=== PATIENT | male | born 1970 | race Hispanic/Latino ===

== ENCOUNTER 2020-08-17 14:18 | Inpatient (IN) | payer BC ==
[~2020-08-17 14:18] MED LIST: Iopamidol-370 76% 500 ML 1 ML ONE
[2020-08-17 14:47] LABS: #Eosinphils 0.1 thou/uL (0.0-0.7); #Lymphocytes 1.1 thou/uL (1.20-3.40); #Monocytes 0.2 thou/uL (0.11-0.59); #Neutrophils 15.8 thou/uL (1.40-6.50); %Basophils 0.3 % (0.0-1.0); %Eosinophils 0.4 % (0.0-10.0); %Lymphocytes 6.3 % (21.0-51.0); Hemoglobin 12.1 g/dL (14.0-18.0); Mean Corpuscular Hemoglobin 32.9 pg (27.0-31.0); Mean Corpuscular Volume 96.8 fL (78.0-98.0); Mean Platelet Volume 7.6 fL (7.4-10.4); Platelet Count 154 thou/uL (130-400); Red Blood Cell (RBC) Count 3.69 mill/uL (4.70-6.10); White Blood Cell (WBC) Count 17.1 thou/uL (4.8-10.8)
--- NOTE | 2020-08-17 14:55 | RAD ---
Chest one view HISTORY: Dyspnea. COMPARISON: 03/04/2016. FINDINGS: Cardiac silhouette is magnified by projection. Shallow inspiration accentuates pulmonary ma rkings. Ill-defined patchy areas of parenchymal opacity involve primarily the peripheral aspect of each lung. Mediastinum is midline. No evidence of pneumothorax. IMPRESSION : Appearance and location of multifocal bilateral infiltrates suggestive of multifocal pneumonia. Corre late for COVID pneumonitis.
[2020-08-17 15:15] LABS: ALT (SGPT) 28 U/L (8-55); AST (SGOT) 51 U/L (5-34); Albumin 3.6 g/dL (3.5-5.0); Alkaline Phosphatase 88 U/L (40-110); Anion Gap 24 mmol/L (10-20); BUN (Urea Nitrogen) 62 mg/dL (8.9-20.6); Bilirubin, Total 0.6 mg/dL (0.2-1.2); Calc. Creatinine Clearance 0 mL/min (70-130); Calcium 8.8 mg/dL (7.8-10.44); Carbon Dioxide 21 mmol/L (22-29); Chloride 96 mmol/L (98-107); Globulin 4.3 g/dL (2.4-3.5); Glucose 143 mg/dL (70-105); Lipase 55 U/L (8-78); Potassium 4.2 mmol/L (3.5-5.1); Protein, Total 7.9 g/dL (6.0-8.3); Sodium 137 mmol/L (136-145)
--- NOTE | 2020-08-17 15:41 | PDOC.FPRHP ---
- History of Present Illness Chief Complaint: Needs Dialysis History of Present Illness: Patient is a 49 yo M with a PMHx of ESRD on dialysis. Patient presented to ED 2/2 needing dialysis. Patient was short of breath for ~1 week and was tested for COVID. With the pending COVID test, the patient was not allowed to go back to the dialysis center. On triage in the ER, patient was hypoxic and placed on NC. He states symptoms progressively became worse over the last week. He denies home oxygen. He does have non-productive cough. Denies chest pain, palpitations. He is tolerating PO intake but decreased food intake. No nausea/vomiting. He does not know his exposure. ED Course: Patient is on 4L NC - Allergies/Adverse Reactions Allergies Allergy/AdvReac Type Severity Reaction Status Date / Time No Known Allergies Allergy Unverified 08/17/20 17:49 - Home Medications Medication Instructions Recorded Confirmed Type Ferric Citrate [Auryxia] 420 mg PO TID-WM 08/18/20 08/18/20 History Midodrine HCl 5 mg PO Q2DAYS 08/18/20 08/18/20 History Vit D3-Vit K/Berberine/Hops 1 tablet PO DAILY 08/18/20 08/18/20 History [Ostera Tablet] - History PMHx: ESRD dialysis MWF, HTN PSHx: Dialysis AVF L arm FHx: non-contributory Social: Chews tobacco daily, denies etoh, drug use - Review of Systems General: reports: fever/chills, weight/appetite/sleep changes, fatigue. denies: night sweats Eyes: denies: eye pain, vision changes ENT: denies: nasal congestion, rhinorrhea Respiratory: reports: cough, congestion, shortness of breath, exercise intolerance Cardiovascular: denies: chest pain, palpitation, edema, paroxysmal nocturnal dyspnea, orthopnea Gastrointestinal: reports: diarrhea. denies: nausea, vomiting, constipation Genitourinary: denies: incontinence, dysuria, polyuria Skin: denies: rashes, lesions, jaundice Musculoskeletal: denies: pain, tenderness, stiffness, swelling Neurological: reports: weakness. denies: numbness, syncope, seizure Psychological: denies: anxiety, depression - Vital signs O2 sat: 68 on (Room Air), Time: 08/17/2020 14:19. BP: 150/100, MAP: 116, Pulse: 96, Resp: 30, Temp: 98.8 (Oral), Pain: 0, O2 sat: 97 on (4L Oxygen), Time: 08/17/2020 14:30. Wt 118 kg - Physical Exam Constitutional: NAD, awake, alert and oriented, well developed HEENT: PERRLA, EOMI Neck: FROM, no JVD Heart: RRR, normal S1/S2 Lungs: CTAB, no respiratory distress, good air movement, no rales/rhonchi, no w heezing Abdomen: soft, non-tender, bowel sounds present Musculoskeletal: normal tone, ROM grossly normal Neurological: no focal deficit, CN II-XII intact Skin: no rash/lesions, capillary refill <2 seconds Heme/Lymphatic: no unusual bruising or bleeding, no purpura, no petechia Psychiatric: normal mood and affect, good judgment and insight, intact recent and remote memory FMR H&P: Results - Labs Result Diagrams: 08/18/20 06:32 08/18/20 06:32 Lab results: WBC 17.1 thou/uL (4.8-10.8) H 08/17/20 14:25 Hgb 12.1 g/dL (14.0-18.0) L 08/17/20 14:25 Hct 35.7 % (42.0-52.0) L 08/17/20 14:25 MCV 96.8 fL (78.0-98.0) 08/17/20 14:25 Plt Count 154 thou/uL (130-400) 08/17/20 14:25 Neutrophils % 92.0 % (42.0-75.0) H 08/17/20 14:25 Sodium 137 mmol/L (136-145) 08/17/20 14:25 Potassium 4.2 mmol/L (3.5-5.1) 08/17/20 14:25 Chloride 96 mmol/L (98-107) L 08/17/20 14:25 Carbon Dioxide 21 mmol/L (22-29) L 08/17/20 14:25 BUN 62 mg/dL (8.9-20.6) H 08/17/20 14:25 Creatinine 13.21 mg/dL (0.7-1.3) H 08/17/20 14:25 Glucose 143 mg/dL (70-105) H 08/17/20 14:25 Calcium 8.8 mg/dL (7.8-10.44) 08/17/20 14:25 Total Bilirubin 0.6 mg/dL (0.2-1.2) 08/17/20 14:25 AST 51 U/L (5-34) H 08/17/20 14:25 ALT 28 U/L (8-55) 08/17/20 14:25 Alkaline Phosphatase 88 U/L (40-110) 08/17/20 14:25 B-Natriuretic Peptide 52.4 pg/mL (0-100) 08/17/20 14:25 Serum Total Protein 7.9 g/dL (6.0-8.3) 08/17/20 14:25 Albumin 3.6 g/dL (3.5-5.0) 08/17/20 14:25 Lipase 55 U/L (8-78) 08/17/20 14:25 - EKG Interpretation EKG: NSR - Radiology Interpretation CT scan - chest Status: report reviewed by me Additional comment: Correlate with COVID No PE Chest x-ray Status: image reviewed by me, report reviewed by me Additional comment: bilateral infiltrates FMR H&P: A/P - Plan Pt is a 49 yo gentleman with ESRD, HTN: # Likely COVID Pneumonia - oxygen therapy as needed - will start dexamethasone - start remdesivir, conv plasma in am if pt has positive test # Leukocytosis # Elevated procalcitonin - UA w/ culture - BCx pending - start cefepime, vanc - hemodynamically stable - trend procal # ESRD MWF - Nephrology consulted, appreciate recs # HTN - unsure medications; monitor but currently normotensive - needs med rec # Hyperglycemia - A1c pendng Code: full DVT: Heparin Diet: Renal Fluids: PO in setting of ESRD Dispo: admit to medical, inpt FMR H&P: Upper Level - Plan Date/Time: 08/17/20 1071 I, Vladimir Baum, have evaluated this patient and agree with findings/plan as outlined by agronomy internship resident. Pertinent changes/additions are listed here. Addendum - Attending - Attending Attestation Date/Time: 08/17/20 8545 I personally evaluated the patient and discussed the management with Dr. Baum I agree with the History, Examination, Assessment and Plan documented above with any addition or exceptions noted below. Admit for AHRF 2/2 COVID. Start treatment. Continue NiPPV. Consult pulm as needed. Trend labs. Consult nephro for HD. Krysta
[2020-08-17] MEDS ORDERED: Calcium Carbonate 500 MG ChewTAB PO PRN (15:46)
[2020-08-17] MEDS ORDERED: Bisacodyl 10 MG SUPP PR PRN (15:46)
[2020-08-17] MEDS ORDERED: Acetaminophen 325 MG TAB PO PRN (15:46)
[2020-08-17] MEDS ORDERED: Ondansetron ODT 4 MG TAB PO PRN (15:46)
[2020-08-17] MEDS ORDERED: Acetaminophen 650 MG Suppository PR PRN (15:46)
[2020-08-17] MEDS ORDERED: Bisacodyl 5 MG TAB PO PRN (15:46)
[2020-08-17] MEDS ORDERED: Ondansetron PF 4 MG/2 ML Vial IVP PRN (15:46)
[2020-08-17] MEDS ORDERED: Senokot S 8.6-50 MG TAB PO PRN (15:46)
--- NOTE | 2020-08-17 15:55 | CT ---
CT arteriogram chest with IV contrast and 3-D imaging HISTORY: Chest pain. Dyspnea. FINDINGS: There is good contrast opacification pulmonary arteries and thoracic aorta with bovine orig in of the great vessels at the aortic arch. No filling defects apparent. Throughout each lung, there are predominantly peripheral ill-defined patchy areas of groundglass infi ltrate. No lobar consolidation or pneumothorax. No pleural fluid. Reactive appearing lymph nodes throughout the mediastinum. IMPRESSION : No evidence of pulmonary embolus. Prominent findings of COVID pneumonitis.
[2020-08-17 17:19] LABS: SARS-CoV-2 NAA Rapid Test DETECTED (NotDetected)
--- NOTE | 2020-08-17 18:53 | CON ---
DATE OF CONSULTATION: 08/17/2020 CONSULTING PHYSICIAN: Dr. Zaldivar REASON FOR CONSULTATION: End-stage renal disease evaluation and care. REASON FOR ADMISSION: Shortness of breath and COVID infection. HISTORY OF PRESENT ILLNESS: A 49-year-old male with history of end-stage renal disease, hypertension, morbid obesity, type 2 diabetes, came to the hospital with shortness of breath. The patient was actually having COVID test, but it was pending, but he became progressively short of breath, was sent to the hospital for evaluation. He was found to be hypoxic in the ER and started on oxygen supplementation and is due for dialysis today. He gets dialysis Thursday, Thursday, Thursday, due for today. Last dialysis was on Thursday. The patient is on 4 L nasal cannula. PAST MEDICAL HISTORY: Positive for end-stage renal disease, type 2 diabetes, hypertension, morbid obesity. PAST SURGICAL HISTORY: Dialysis access placement. HOME MEDICATIONS: Reviewed. ALLERGIES: NO KNOWN DRUG ALLERGIES. SOCIAL HISTORY: Chews tobacco. No alcohol or illicit drug abuse. FAMILY HISTORY: No history of kidney disease. REVIEW OF SYSTEMS: The following complete review of systems was negative, unless otherwise mentioned in the HPI or below: CONSTITUTIONAL: Weight loss or gain, ability to conduct usual activities. SKIN: Rash, itching. EYES: Double vision, pain. ENT/MOUTH: Nose bleeding, neck stiffness, pain, tenderness. CARDIOVASCULAR: Palpitations, dyspnea on exertion, orthopnea. RESPIRATORY: Shortness of breath, wheezing, cough, hemoptysis, fever or night sweats. GASTROINTESTINAL: Poor appetite, abdominal pain, heartburn, nausea, vomiting, constipation, or diarrhea. GENITOURINARY: Urgency, frequency, dysuria, nocturia. MUSCULOSKELETAL: Pain, swelling. NEUROLOGIC/PSYCHIATRIC: Anxiety, depression. ALLERGY/IMMUNOLOGIC: Skin rash, bleeding tendency. PHYSICAL EXAMINATION: GENERAL: This is a morbidly obese male on COVID isolation. VITAL SIGNS: Temperature 98, pulse 96, respiratory rate 30, blood pressure 150/100. The patient on COVID isolation. LABORATORY DATA: Potassium 4.2, BUN is 62, and creatinine is 13.2. Hemoglobin is 12.1. Bicarb is 21. COVID test is positive. ASSESSMENT AND PLAN: 1. End-stage renal disease, due for dialysis today. We will continue dialysis as tolerated. 2. COVID-19 infection with pneumonia. 3. Acute hypoxic respiratory failure secondary to COVID-19 infection. 4. Anemia of chronic kidney disease. 5. Edema. 6. Hypertension. 7. Mild hypoalbuminemia. 8. Morbid obesity. 9. Mild acidosis. Prognosis is guarded. Continue dialysis as tolerated. Continue supportive care. We will follow. Thank you for the consult. Job ID: [id number]
[2020-08-17] MEDS ORDERED: Vancomycin 1.5 GRAM/300 ML BAG 1.5 GM in Premix Bag 1 BAG IVPB SCH (20:00)
[2020-08-17 21:28] VITALS: BMI 38.3
[2020-08-17] MEDS ORDERED: Cefepime 1 GM in Sodium Chloride 0.9% 100 ML IVPB SCH (22:15)
[2020-08-17 22:27] LABS: HBSAg Index 0.15 S/CO (0-0.99); Hep B Surf Ag Non-Reactive S/CO (NonReactive)
[2020-08-18] MEDS: Heparin 5,000 UNITS/ML VIAL SC SCH ×4 (02:30→22:19)
[2020-08-18] MEDS ORDERED: Vancomycin 1.5 GRAM/300 ML BAG 1.5 GM in Premix Bag 1 BAG IVPB SCH (04:00)
--- NOTE | 2020-08-18 05:20 | PDOC.FM ---
- Subjective Subjective: States he slept well overnight without any SOB. Denies headache, vision changes, fatigue, chest pain, palpitations and edema. Will contact family to obtain names/doses of BP medication. - Objective MAR Reviewed: Yes Vital Signs & Weight: Vital Signs (12 hours) Temp Pulse Resp BP Pulse Ox 08/18/20 03:49 99.3 F 115 H 20 152/85 H 92 L 08/17/20 23:45 98.6 F 96 18 140/87 94 L 08/17/20 20:06 98.5 F 93 26 H 161/97 H 93 L Weight Weight 117.9 kg Result Diagrams: 08/18/20 06:32 08/18/20 06:32 Phys Exam - Physical Examination Constitutional: NAD HEENT: moist MMs, sclera anicteric Neck: no nodes Respiratory: clear to auscultation bilateral Sat 94% on 4L Cardiovascular: RRR, no significant murmur Gastrointestinal: soft, non-tender, positive bowel sounds Musculoskeletal: no edema Neurological: moves all 4 limbs Psychiatric: normal affect Skin: cap refill <2 seconds Dx/Plan - Plan Plan: Pt is a 49 yo gentleman with ESRD, HTN: Acute hypoxic respiratory failure 2/2 COVID pneumonia -O2 supplementation as needed. Currently sat'ing 92-94% at 4L NC -Continue dexamethasone (08/17) -Start remdesivir (08/18) and convalescent plasma (08/18) -Procal elevated at 9.97 > 10.62. Continue cefepime, vanc for possible superimposed bacterial infection. Trend procal daily # ESRD MWF - Nephrology consulted, f/u recs # HTN - unsure of medications. Patient is contacting family to obtain names/doses. Otherwise, will contact pharmacy # Hyperglycemia BG 143 in ED - A1c pendng PCP: [facility] Call Code: Full DVT: Heparin Diet: Renal Fluids: PO in setting of ESRD Dispo: Pending further medical management Addendum - Attending - Attending Attestation Date/Time: 08/18/20 3485 I personally evaluated the patient and discussed the management with Dr. Santana I agree with the History, Examination, Assessment and Plan documented above with any addition or exceptions noted below. Patient with ESRD and COVID AHRF. Continue supportive care IV ABX cefepime/vancomycin s/p convalescent plasma.
[2020-08-18 07:11] LABS: #Eosinphils 0.1 thou/uL (0.0-0.7); #Lymphocytes 0.8 thou/uL (1.20-3.40); #Monocytes 0.3 thou/uL (0.11-0.59); #Neutrophils 11.9 thou/uL (1.40-6.50); %Eosinophils 0.4 % (0.0-10.0); %Lymphocytes 6.4 % (21.0-51.0); %Monocytes 1.9 % (0.0-10.0); %Neutrophils 91.3 % (42.0-75.0); Hemoglobin 11.4 g/dL (14.0-18.0); Mean Corpuscular HGB CONC 34.7 g/dL (32.0-36.0); Mean Corpuscular Hemoglobin 33.5 pg (27.0-31.0); Mean Corpuscular Volume 96.7 fL (78.0-98.0); Mean Platelet Volume 7.6 fL (7.4-10.4); Platelet Count 159 thou/uL (130-400); RBC Distribution Width 13.2 % (11.5-14.5); Red Blood Cell (RBC) Count 3.39 mill/uL (4.70-6.10); White Blood Cell (WBC) Count 13.1 thou/uL (4.8-10.8)
[2020-08-18 07:34] LABS: Anion Gap 21 mmol/L (10-20); BUN (Urea Nitrogen) 37 mg/dL (8.9-20.6); Calc. Creatinine Clearance 17 mL/min (70-130); Carbon Dioxide 21 mmol/L (22-29); Chloride 95 mmol/L (98-107); Glucose 115 mg/dL (70-105); Potassium 4.2 mmol/L (3.5-5.1); Sodium 133 mmol/L (136-145)
[2020-08-18] MEDS ORDERED: Ferric Citrate [Auryxia] 210 MG Tablet PO SCH (08:00)
[2020-08-18] MEDS: Dexamethasone 4 MG TAB PO SCH (08:22)
[2020-08-18] MEDS ORDERED: BERBERINE PO SCH (09:00)
[2020-08-18] MEDS ORDERED: VIT D3 VIT K PO SCH (09:00)
[2020-08-18] MEDS ORDERED: HOPS PO SCH (09:00)
[2020-08-18] MEDS ORDERED: Vancomycin 1 GM in Premix Bag 1 BAG IVPB SCH (10:00)
[2020-08-18] MEDS ORDERED: HOLD VANCOMYCIN FOR LEVEL >20 IVP SCH (10:00)
[2020-08-18] MEDS ORDERED: Vancomycin HCl 1.25 GM in Sodium Chloride 0.9% 250 ML 250 ML IVPB SCH (10:00)
[2020-08-18] MEDS ORDERED: Vancomycin HCl 750 MG in Sodium Chloride 0.9% 250 ML 250 ML IVPB SCH (10:00)
[2020-08-18] MEDS ORDERED: Vancomycin HCl 1.5 GM in Sodium Chloride 0.9% 250 ML 300 ML IVPB SCH (10:00)
[2020-08-18] MEDS ORDERED: REMDESIVIR (EUA) 200 MG in Sodium Chloride 0.9% 250 ML 210 ML IV SCH ×2 (11:00→11:15)
[2020-08-18] MEDS ORDERED: REMDESIVIR (EUA) 100 MG in Sodium Chloride 0.9% 250 ML 230 ML IV SCH (11:15)
--- NOTE | 2020-08-18 11:51 | PRG ---
DATE OF SERVICE: 08/18/2020 SUBJECTIVE: Patient was seen and examined at bedside and overnight events noted. Patient denies any shortness of breath or chest pain or palpitation. No history of nausea or vomiting or diarrhea or fever or chills or cramps. OBJECTIVE: GENERAL: This is well-built male, in no apparent distress. VITAL SIGNS: Temperature 99.5, pulse 110, respiratory rate 18, blood pressure 163/98. HEENT: Atraumatic, normocephalic. Oral mucosa is moist. NECK: Supple. CARDIOVASCULAR: S1, S2 heard. Rate and rhythm regular. RESPIRATORY: Clear to auscultation. GASTROINTESTINAL: Abdomen is soft. MUSCULOSKELETAL: No tenderness. No edema. DERMATOLOGIC: No skin rash. NEUROLOGIC: Alert and awake and oriented x3. No focal neurologic deficits. Moving all the extremities. PSYCHIATRIC: Mood and affect normal. LABORATORY DATA: Potassium 4.2, BUN is 37, creatinine is 8.9. ASSESSMENT AND PLAN: 1. End-stage renal disease. Continue dialysis as tolerated. 2. Edema. 3. Hypertension. 4. COVID-19 infection. 5. Acute hypoxic respiratory failure. 6. Hypertension. 7. Morbid obesity. Continue dialysis as tolerated on Thursday, Thursday, and Thursday. Advised limit fluid intake. Job ID: [id number]
[2020-08-18] MEDS ORDERED: hydrALAZINE 20 MG/ML VIAL SLOW IVP PRN (17:28)
[2020-08-18] MEDS ORDERED: Prevnar 13-Val Conj/PF 0.5 ML SYRINGE IM ONE (21:00)
[2020-08-18] MEDS ORDERED: FLU VACC QS2020-21(6MOS UP)/PF 60 MCG/0.5 ML SYRINGE IM ONE (21:00)
[2020-08-18] MEDS ORDERED: Cefepime 0.5 GM, Admixture Fee 1 EACH in Sodium Chloride 0.9% 100 ML IVPB SCH (22:00)
[2020-08-18] MEDS: guaiFENesin ER 600 MG TAB PO SCH (22:19)
[2020-08-19 04:57] LABS: #Lymphocytes 0.9 thou/uL (1.20-3.40); #Monocytes 0.5 thou/uL (0.11-0.59); #Neutrophils 12.8 thou/uL (1.40-6.50); %Basophils 0.3 % (0.0-1.0); %Eosinophils 0.3 % (0.0-10.0); %Monocytes 3.2 % (0.0-10.0); %Neutrophils 90.3 % (42.0-75.0); Mean Corpuscular Volume 96.8 fL (78.0-98.0); Mean Platelet Volume 7.2 fL (7.4-10.4); Platelet Count 206 thou/uL (130-400); RBC Distribution Width 13.1 % (11.5-14.5); Red Blood Cell (RBC) Count 3.56 mill/uL (4.70-6.10); White Blood Cell (WBC) Count 14.1 thou/uL (4.8-10.8)
[2020-08-19 05:21] LABS: Anion Gap 25 mmol/L (10-20); BUN (Urea Nitrogen) 67 mg/dL (8.9-20.6); Calc. Creatinine Clearance 13 mL/min (70-130); Calcium 9.6 mg/dL (7.8-10.44); Carbon Dioxide 20 mmol/L (22-29); Chloride 94 mmol/L (98-107); Glucose 147 mg/dL (70-105); Potassium 4.6 mmol/L (3.5-5.1); Sodium 134 mmol/L (136-145)
--- NOTE | 2020-08-19 06:25 | PDOC.FM ---
- Subjective Subjective: Reports SOB with ambulation and BMs. Denies SOB at this time while resting in bed. Denies headache, vision changes, chest pain, palpitations, abdominal pain and edema. - Objective MAR Reviewed: Yes Vital Signs & Weight: Vital Signs (12 hours) Temp Pulse Resp BP Pulse Ox 08/18/20 20:00 98.3 F 80 18 147/99 H 94 L Weight Weight 117.9 kg I&O: 08/17/20 08/18/20 08/19/20 06:59 06:59 06:59 Intake Total 1200 Balance 1200 Result Diagrams: 08/19/20 04:38 08/19/20 04:38 Phys Exam - Physical Examination Constitutional: NAD HEENT: moist MMs, sclera anicteric Neck: full ROM Respiratory: clear to auscultation bilateral Cardiovascular: RRR, no significant murmur Gastrointestinal: soft, non-tender, positive bowel sounds Musculoskeletal: no edema Neurological: non-focal Psychiatric: normal affect Skin: no rash Dx/Plan - Plan Plan: Pt is a 49 yo gentleman with ESRD, HTN: Acute hypoxic respiratory failure 2/2 COVID pneumonia -O2 supplementation as needed. Currently sat'ing 94% at 4L NC -Continue dexamethasone (08/17), remdesivir (08/18) and convalescent plasma (08/18) -Procal elevated at 9.97 > 10.62 > 8.09. Discontinue vanc (08/17-08/18) and cefepime (08/17-08/18). Start azithromycin, rocephin for CAP coverage -F/u CXR this am -Continue trending procal daily # ESRD MWF - Nephrology consulted, recommended routine M/W/F dialysis - Limit fluid intake # HTN - Not on home meds. Hydralazine PRN # Prediabetes -A1C 6 upon admission PCP: [facility] Call Code: Full DVT: Heparin Diet: Renal Fluids: PO in setting of ESRD Dispo: Home pending further medical management. CM has been consulted for home O2 requirement Addendum - Attending - Attending Attestation Date/Time: 08/19/20 5661 I personally evaluated the patient and discussed the management with Dr. Santana I agree with the History, Examination, Assessment and Plan documented above with any addition or exceptions noted below. Patient appears stable however procalcitonin not trending down as expected agree with CAP and atypical coverage could potentially be d/c home soon on po abx.
[2020-08-19] MEDS: Heparin 5,000 UNITS/ML VIAL SC SCH ×3 (07:41→22:22)
[2020-08-19] MEDS: Dexamethasone 4 MG TAB PO SCH (07:41)
[2020-08-19] MEDS: guaiFENesin ER 600 MG TAB PO SCH ×2 (07:43→22:22)
--- NOTE | 2020-08-19 09:37 | RAD ---
RADIOGRAPH CHEST 1 VIEW: DATE: 08/19/2020 TIME: 9:24 AM HISTORY: 49-year-old male with dyspnea. Follow-up. COMPARISON: 08/29/2020 FINDINGS: Imaging technique is very different between the 2 studies, making comparison somewhat difficult. Diffuse bilateral nodular alveolar infiltrates throughout all lung de dios, right slightly greater katia n left. These appear to have improved, but that difference is probably due to higher exposure on the current study. No pneumothorax. Lateral costophrenic angles are not effaced. IMPRESSION: Probably no significant interval change in diffuse bilateral moderate to severe COVID 19 pneumonia.
[2020-08-19] MEDS: cefTRIAXone\\ROCEPHIN 1 GM in Sodium Chloride 0.9% 100 ML IVPB SCH (10:24)
[2020-08-19] MEDS ORDERED: Azithromycin 500 MG in Sodium Chloride 0.9% 250 ML 250 ML IVPB SCH (11:00)
[2020-08-19] MEDS ORDERED: REMDESIVIR (EUA) 100 MG in Sodium Chloride 0.9% 250 ML 230 ML IV SCH (12:00)
--- NOTE | 2020-08-19 12:29 | PRG ---
DATE OF SERVICE: 08/19/2020 SUBJECTIVE: Patient on COVID isolation. OBJECTIVE: VITAL SIGNS: Temperature 98.3, pulse 71, respirations 18, blood pressure 133/76. LABORATORY DATA: Potassium 4.6, BUN is 67, creatinine is 11.1, sodium 135. ASSESSMENT AND PLAN: 1. End-stage renal disease. Continue dialysis as tolerated. 2. Edema. 3. Hypertension. 4. Morbid obesity. 5. COVID-19 infection. 6. Hyponatremia, limit fluid intake. Advised limit fluid intake. Continue supportive care. We will continue dialysis Thursday, Thursday, Thursday as tolerated. Job ID: [id number]
--- NOTE | 2020-08-20 06:19 | PDOC.FM ---
- Subjective Subjective: Reports improvement of SOB, describes as mild with ambulation. Denies headache, vision changes, chest pain, SOB, and abdominal pain. - Objective MAR Reviewed: Yes Vital Signs & Weight: Vital Signs (12 hours) Temp Pulse Resp BP Pulse Ox 08/19/20 20:00 97.8 F 75 20 158/91 H 95 08/19/20 19:39 97.8 F 77 20 166/96 H 94 L Weight Weight 117.9 kg I&O: 08/18/20 08/19/20 08/20/20 06:59 06:59 06:59 Intake Total 1200 480 Balance 1200 480 Result Diagrams: 08/20/20 06:30 08/20/20 06:30 Phys Exam - Physical Examination Constitutional: NAD HEENT: moist MMs, sclera anicteric Neck: full ROM Respiratory: clear to auscultation bilateral Sat'ing 94% on 4L Cardiovascular: RRR, no significant murmur Gastrointestinal: soft, non-tender, positive bowel sounds Musculoskeletal: no edema Neurological: non-focal Psychiatric: normal affect, A&O x 3 Skin: no rash Dx/Plan - Plan Plan: Pt is a 49 yo gentleman with ESRD, HTN: # Acute hypoxic respiratory failure 2/2 COVID pneumonia -O2 supplementation as needed. Currently sat'ing 94% at 4L NC -Dexamethasone (08/17). S/p convalescent plasma (08/18) -Did not receive remdesivir due to elevated LFT -Procal elevated at 9.97 > 10.62 > 8.09. Discontinued vanc (08/17-08/18) and cefepime (08/17-08/18). Started azithromycin (08/19), rocephin (08/19) for CAP coverage -Repeat CXR 08/19: unchanged -CM consulted for home O2 coordination # ESRD MWF - Nephrology consulted, recommended routine M/W/F dialysis. Scheduled for dialysis today - Limit fluid intake # HTN - Not on home meds - Hydralazine PRN # Prediabetes -A1C 6 upon admission PCP: [facility] Call Code: Full DVT: Heparin Diet: Renal Fluids: PO in setting of ESRD Dispo: Stable for discharge home pending home O2 and dialysis today Addendum - Attending - Attending Attestation Date/Time: 08/20/20 1033 I personally evaluated the patient and discussed the management with Dr. Santana. I agree with the History, Examination, Assessment and Plan documented above with any addition or exceptions noted below. Patient reports feeling improved. He does have decent shortness of breath with exertion, but reports his activity tolerance has increased. Continue COVID care, continue HD. Wean O2 as tolerated and increase ambulation.
[2020-08-20 06:52] LABS: Hemoglobin 11.6 g/dL (14.0-18.0); Mean Corpuscular HGB CONC 34.5 g/dL (32.0-36.0); Mean Corpuscular Hemoglobin 33.3 pg (27.0-31.0); Mean Corpuscular Volume 96.4 fL (78.0-98.0); Mean Platelet Volume 7.2 fL (7.4-10.4); Platelet Count 211 thou/uL (130-400); RBC Distribution Width 13.2 % (11.5-14.5); Red Blood Cell (RBC) Count 3.49 mill/uL (4.70-6.10); White Blood Cell (WBC) Count 20.3 thou/uL (4.8-10.8)
[2020-08-20 07:08] LABS: Anion Gap 24 mmol/L (10-20); BUN (Urea Nitrogen) 96 mg/dL (8.9-20.6); Calc. Creatinine Clearance 12 mL/min (70-130); Calcium 9.2 mg/dL (7.8-10.44); Carbon Dioxide 17 mmol/L (22-29); Chloride 94 mmol/L (98-107); Glucose 133 mg/dL (70-105); Potassium 4.5 mmol/L (3.5-5.1); Sodium 130 mmol/L (136-145)
[2020-08-20] MEDS: guaiFENesin ER 600 MG TAB PO SCH ×2 (08:29→20:12)
[2020-08-20] MEDS: Dexamethasone 4 MG TAB PO SCH (08:29)
[2020-08-20] MEDS: Heparin 5,000 UNITS/ML VIAL SC SCH ×3 (08:29→20:12)
[2020-08-20] MEDS: Azithromycin 250 MG TAB PO SCH (08:30)
[2020-08-20 08:49] LABS: Band 6 % (5-11); Lymphocytes 6 % (21-51); MDiff Complete? YES; Metamyelocyte 2 % (0-0); Monocytes 5 % (0-10); Myelocyte 1 % (0-0); Neutrophil 80 % (42-75); Platelet Morphology Comment Appears Adequate; Polychromasia SLIGHT = 2-3 cells (100X) (0-2/hpf)
--- NOTE | 2020-08-20 09:50 | PRG ---
DATE OF SERVICE: 08/20/2020 SUBJECTIVE: A 49-year-old gentleman, being seen for end-stage renal disease. The patient denied any nausea, vomiting, or chest pain. PHYSICAL EXAMINATION: GENERAL: The patient is awake and alert. VITAL SIGNS: Afebrile, pulse 73, breathing at 16, blood pressure 142/86. HEENT: Head normocephalic and atraumatic. Eyes intact, no ulcers. Nose intact, no ulcers. Ears intact, no ulcers. NECK: Supple. No JVD. CHEST: Symmetrical and clear. CARDIOVASCULAR: Shows S1 and S2, no rub, no murmur. GASTROINTESTINAL: Abdomen is soft, bowel sounds positive. EXTREMITIES: Show no edema or ulcers. SKIN: Shows no rash or petechiae. MUSCULOSKELETAL: Shows no joint swelling or stiffness. GENITOURINARY: Shows no Bhatt or CVA tenderness. NEUROLOGIC: Motor intact. Cranial nerves intact. LABORATORY DATA: Reviewed. ASSESSMENT AND PLAN: 1. Stage 6 chronic kidney disease, plan dialysis. 2. Hypertension, stable. 3. Anemia, stable. Medication based on GFR appropriate. Job ID: [id number]
[2020-08-20] MEDS: cefTRIAXone\\ROCEPHIN 1 GM in Sodium Chloride 0.9% 100 ML IVPB SCH (12:40)
--- NOTE | 2020-08-21 06:52 | PDOC.FM ---
- Subjective Subjective: Reports SOB with ambulation. Otherwise, feels well. Underwent dialysis yesterday per routine M/W/F schedule. - Objective MAR Reviewed: Yes Vital Signs & Weight: Vital Signs (12 hours) Temp Pulse Resp BP Pulse Ox 08/21/20 03:50 97.8 F 84 20 135/88 95 08/20/20 19:54 98.3 F 91 20 120/75 93 L Weight Weight 117.9 kg I&O: 08/19/20 08/20/20 08/21/20 06:59 06:59 06:59 Intake Total 1200 480 240 Output Total 300 Balance 1200 480 -60 Result Diagrams: 08/21/20 06:02 08/21/20 06:02 Phys Exam - Physical Examination Constitutional: NAD HEENT: moist MMs, sclera anicteric Neck: full ROM Respiratory: no wheezing, clear to auscultation bilateral On 4L Cardiovascular: RRR, no significant murmur Gastrointestinal: soft, non-tender, positive bowel sounds Musculoskeletal: no edema Neurological: moves all 4 limbs Psychiatric: normal affect, A&O x 3 Skin: no rash Dx/Plan - Plan Plan: Pt is a 49 yo gentleman with ESRD, HTN: # Acute hypoxic respiratory failure 2/2 COVID pneumonia -O2 supplementation as needed. Currently sat'ing 92% at 4L NC. Wean as tolerated -Dexamethasone (08/17). S/p convalescent plasma (08/18) -Did not receive remdesivir due to ESRD, elevated LFT -Procal downtrendin.97 > 10.62 > 8.09 > 5 > 3. Discontinued vanc (08/17-08/18) and cefepime (08/17-08/18) Started azithromycin (08/19), rocephin (08/19) for CAP coverage -Repeat CXR 08/19: unchanged -CM consulted for home O2 coordination. Company currently out of O2 -Encouraged increased ambulation as tolerated # ESRD MWF - Nephrology consulted, recommended routine M/W/F dialysis - Limit fluid intake # Hyponatremia -Na 134 -> 130 -> 132 -Monitor # HTN - Not on home meds - Hydralazine PRN # Prediabetes -A1C 6 upon admission PCP: [facility] Call Code: Full DVT: Heparin Diet: Renal Fluids: PO in setting of ESRD Dispo: Stable for discharge home pending obtaining home O2 and coordinating outpatient dialysis with COVID + status Addendum - Attending - Attending Attestation Date/Time: 08/21/20 9121 I personally evaluated the patient and discussed the management with Dr. Santana. I agree with the History, Examination, Assessment and Plan documented above with any addition or exceptions noted below. Patient stable. Reports improved activity tolerance, still on 4L by NC. Continue therapies for COVID. Work to get his outpatient HD arranged as well as home O2 set up. If he remains fairly stable, may be ready for dc today or tomorrow.
[2020-08-21 06:55] LABS: Anion Gap 22 mmol/L (10-20); BUN (Urea Nitrogen) 73 mg/dL (8.9-20.6); Calc. Creatinine Clearance 16 mL/min (70-130); Calcium 8.5 mg/dL (7.8-10.44); Carbon Dioxide 21 mmol/L (22-29); Chloride 93 mmol/L (98-107); Glucose 141 mg/dL (70-105); Potassium 4.1 mmol/L (3.5-5.1); Sodium 132 mmol/L (136-145)
[2020-08-21 07:50] LABS: Band 4 % (5-11); Hemoglobin 11.7 g/dL (14.0-18.0); Lymphocytes 7 % (21-51); MDiff Complete? YES; Mean Corpuscular HGB CONC 35.1 g/dL (32.0-36.0); Mean Corpuscular Hemoglobin 33.5 pg (27.0-31.0); Mean Corpuscular Volume 95.5 fL (78.0-98.0); Mean Platelet Volume 7.3 fL (7.4-10.4); Metamyelocyte 2 % (0-0); Neutrophil 87 % (42-75); Platelet Count 199 thou/uL (130-400); RBC Morphology Normal; Red Blood Cell (RBC) Count 3.48 mill/uL (4.70-6.10); White Blood Cell (WBC) Count 16.1 thou/uL (4.8-10.8)
[2020-08-21] MEDS: guaiFENesin ER 600 MG TAB PO SCH ×2 (09:21→20:21)
[2020-08-21] MEDS: Dexamethasone 4 MG TAB PO SCH (09:21)
[2020-08-21] MEDS: Azithromycin 250 MG TAB PO SCH (09:22)
[2020-08-21] MEDS: Heparin 5,000 UNITS/ML VIAL SC SCH ×3 (09:22→20:21)
--- NOTE | 2020-08-21 12:17 | PRG ---
DATE OF SERVICE: 08/21/2020 SUBJECTIVE: A 49-year-old gentleman being seen for end-stage renal disease. The patient denies any nausea, vomiting, or chest pain. OBJECTIVE: GENERAL: The patient is awake and alert. VITAL SIGNS: Pulse 85, breathing 16, blood pressure 127/86. HEENT: Head normocephalic and atraumatic. Eyes intact, no ulcers. Nose intact, no ulcers. Ears intact, no ulcers. NECK: Supple. No JVD. CHEST: Symmetrical and clear. CARDIOVASCULAR: Shows S1 and S2, no rub, no murmur. GASTROINTESTINAL: Abdomen is soft, bowel sounds positive. EXTREMITIES: Show no edema or ulcers. SKIN: Shows no rash or petechiae. MUSCULOSKELETAL: Shows no joint swelling or stiffness. GENITOURINARY: Shows no Bhatt or CVA tenderness. NEUROLOGIC: Motor intact. Cranial nerves intact. LABORATORY DATA: Reviewed. ASSESSMENT AND PLAN: 1. Stage 6 chronic kidney . 2. Hypertension, stable. 3. Anemia, stable. 4. Medication based on GFR appropriate. Job ID: [id number]
[2020-08-21] MEDS: cefTRIAXone\\ROCEPHIN 1 GM in Sodium Chloride 0.9% 100 ML IVPB SCH (12:37)
--- NOTE | 2020-08-22 07:08 | PDOC.FM ---
- Subjective Subjective: Reports continued improvement of SOB with ambulation. Now able to ambulate to bathroom without SOB. Is ready to go home. Denies headache, chest pain, palpitations and edema. - Objective MAR Reviewed: Yes Vital Signs & Weight: Vital Signs (12 hours) Temp Pulse Resp BP Pulse Ox 08/21/20 19:33 97.7 F 85 18 142/97 H 95 Weight Weight 117.9 kg I&O: 08/21/20 08/22/20 08/23/20 06:59 06:59 06:59 Intake Total 240 3240 Output Total 300 Balance -60 3240 Result Diagrams: 08/21/20 06:02 08/22/20 08:14 Phys Exam - Physical Examination Constitutional: NAD HEENT: moist MMs, sclera anicteric Neck: full ROM Respiratory: clear to auscultation bilateral On 4L Cardiovascular: RRR, no significant murmur Gastrointestinal: soft, non-tender, positive bowel sounds Musculoskeletal: no edema Neurological: moves all 4 limbs Psychiatric: normal affect, A&O x 3 Skin: no rash Dx/Plan - Plan Plan: Pt is a 49 yo gentleman with ESRD, HTN: # Acute hypoxic respiratory failure 2/2 COVID pneumonia -O2 supplementation as needed. Currently sat'ing 92% at 4L NC. Wean as tolerated -Dexamethasone (08/17). S/p convalescent plasma (08/18) -Did not receive remdesivir due to ESRD, elevated LFT -Procal downtrendin.97 > 10.62 > 8.09 > 5 > 3. Discontinued vanc (08/17-08/18) and cefepime (08/17-08/18) Started azithromycin (08/19), rocephin (08/19) for CAP coverage -Repeat CXR 08/19: unchanged -CM consulted for home O2 coordination - has been approved -Encouraged increased ambulation as tolerated # ESRD MWF - Nephrology consulted, recommended routine M/W/F dialysis - Limit fluid intake # Hyponatremia, improving -Na 134 -> 130 -> 132 -> 133 -Monitor # HTN - Not on home meds - Hydralazine PRN # Prediabetes -A1C 6 upon admission PCP: [facility] Call Code: Full DVT: Heparin Diet: Renal Fluids: PO in setting of ESRD Dispo: Stable for discharge home today. Will f/u with [facility] to establish care within 1 week Addendum - Attending - Attending Attestation Date/Time: 08/22/20 1110 I personally evaluated the patient and discussed the management with Dr. Santana. I agree with the History, Examination, Assessment and Plan documented above with any addition or exceptions noted below.
[2020-08-22 08:42] LABS: Anion Gap 24 mmol/L (10-20); BUN (Urea Nitrogen) 102 mg/dL (8.9-20.6); Calc. Creatinine Clearance 14 mL/min (70-130); Calcium 8.2 mg/dL (7.8-10.44); Carbon Dioxide 20 mmol/L (22-29); Chloride 93 mmol/L (98-107); Glucose 144 mg/dL (70-105); Potassium 4.3 mmol/L (3.5-5.1); Sodium 133 mmol/L (136-145)
[2020-08-22] MEDS: Dexamethasone 4 MG TAB PO SCH (09:08)
[2020-08-22] MEDS: guaiFENesin ER 600 MG TAB PO SCH (09:08)
[2020-08-22] MEDS: Azithromycin 250 MG TAB PO SCH (09:08)
[2020-08-22] MEDS: Heparin 5,000 UNITS/ML VIAL SC SCH (09:08)
--- NOTE | 2020-08-22 10:49 | PRG ---
DATE OF SERVICE: 08/22/2020 SUBJECTIVE: A 49-year-old gentleman, being seen for end-stage renal disease. The patient denied nausea, vomiting, or chest pain. OBJECTIVE: GENERAL: The patient is awake and alert. VITAL SIGNS: Afebrile, pulse 75, breathing 16, blood pressure 142/97. HEENT: Head normocephalic and atraumatic. Eyes intact, no ulcers. Nose intact, no ulcers. Ears intact, no ulcers. Neck: Supple. No JVD. Chest: Symmetrical and clear. Cardiovascular: Shows S1 and S2, no rub, no murmur. Gastrointestinal: Abdomen is soft, bowel sounds positive. Extremities: Show no edema or ulcers. Skin: Shows no rash or petechiae. Musculoskeletal: Shows no joint swelling or stiffness. Genitourinary: Shows no Bhatt or CVA tenderness. Neurologic: Motor intact. Cranial nerves intact. LABORATORY DATA: Reviewed. ASSESSMENT AND PLAN: 1. Stage 6 chronic kidney disease, stable. 2. Hypertension, stable. 3. Anemia, stable. 4. Medication based on GFR appropriate. Job ID: [id number]
[2020-08-22] MEDS: cefTRIAXone\\ROCEPHIN 1 GM in Sodium Chloride 0.9% 100 ML IVPB SCH (11:26)
[2020-08-22 11:40] VITALS: BP 152/98; TEMP 98.5
--- NOTE | 2020-08-23 12:57 | DIS ---
DATE OF ADMISSION: 08/17/2020 DATE OF DISCHARGE: 08/22/2020 RESIDENT: Ksenia Santana MD ADMITTING ATTENDING: Dr. Armida Smith. DISCHARGE ATTENDING: Dr. Lucian Carlin. CONSULTS: Dr. Garrett, Nephrology. PROCEDURES: Routine dialysis completed while inpatient. PRIMARY DIAGNOSES: 1. Acute hypoxic respiratory failure secondary to COVID pneumonia. 2. Hyponatremia, improved. SECONDARY DIAGNOSES: 1. End-stage renal disease, on dialysis Thursday, Thursday, and Thursday. 2. Hypertension. 3. Prediabetes. DISCHARGE MEDICATIONS: 1. Ferric citrate 420 mg p.o. t.i.d. with meals. 2. Ostera tablet one tablet p.o. daily. 3. Cefdinir 300 mg p.o. q.12 hours for one day to complete course. 4. Mucinex 1200 mg p.o. q.12 hours p.r.n. 5. Decadron 6 mg p.o. q.a.m. with meals for four days to complete course. 6. Azithromycin 250 mg p.o. daily for one day to complete course. DISCONTINUED MEDICATIONS: None. HISTORY OF PRESENT ILLNESS: The patient is a 49-year-old male with a history of end-stage renal disease, on dialysis Thursday, Thursday, Thursday, who presented to the ED on 08/17/2020 with reports of shortness of breath for one week. The patient tested positive for COVID. While in the ED, he desaturated to 68% on room air and was placed on 4 L nasal cannula with improvement of respiratory status. The patient was started on dexamethasone 6 mg p.o. daily. He was given convalescent plasma on 08/18/2020. He did not receive remdesivir due to end-stage renal disease and elevated LFTs. The patient received Vancomycin and cefepime from 08/17-08/18. He was started on azithromycin and Rocephin for community acquired pneumonia coverage on 08/19/2020. The procalcitonin was trended and antibiotics were discontinued on 08/22/20. During hospitalization, the patient was noted to have hyponatremia trending 134 to 130 to 132 to 133. P.o. intake was encouraged with improvement. Upon admission, A1c was 6.0. The patient was diagnosed with prediabetes and counseled on dietary intake and exercise choices. The patient was deemed stable for discharge home with home O2 at 4 L on 08/22/2020. He was instructed to establish care with [facility] and follow up within 1 week. DISPOSITION: Stable. DISCHARGE INSTRUCTIONS: 1. Location: Home with home O2 at 4 L. 2. Diet: Heart healthy, low protein renal diet. 3. Activity: As tolerated. 4. Followup: Establish care at [facility] and follow up within 1 week. Job ID: [id number] [facility] SERVICES[facility]
--- NOTE | 2020-08-24 03:07 | PQF ---
Dear : Lucian Bullock Date 08/23/2020 Please exercise your independent, professional judgment in responding to the clarification form. Clinical indicators are provided on the bottom of this form for your review Can you please further clarify the diagnosis of the patient? Please check appropriate box(es): [ ] Sepsis due to COVID Pneumonia [ X ] Localized infection without sepsis [ ] Other diagnosis _acute hypoxic resp failure 2/2 COVID [ ] Unable to determine Physician Signature: Date/Time: For continuity of documentation, please document condition throughout progress notes and discharge summary. Thank You. To be completed by CDI/Coding staff for physician review: Present Clinical Indicators - Signs / Symptoms / Labs Results and Location in Medical Record [ x ] VS: BP: 150/100, CO: 96, RR: 30, T: 98.8 ED Provider pg.2 [ x ] Leukocytosis H and P pg.4 [ x ] Hyperglycemia H and P pg.4 [ x ] Elevated prolactin H and P pg.4 [ x ] Acute respiratory failure 2/2 COVID 19 infection Consult pg.2 [ x ] Mild acdosis Consult pg.2 [ x ] WBC: 17.1H, 13.1H, 14.1H, 20.3H, 16.1H Laboratory [ x ] Prolactin: 9.97, 10.62, 8.09,5.07, 3.11, 1.98 Laboratory Present Risk Factors Results and Location in Medical Record [ x ] ESRD H and P pg.1 [ x ] COVID Pneumonia H and P pg.1 [ x ] Morbid obesity Consult pg.1 [ ] HTN H and P pg.1 Present Treatments Results and Location in Medical Record [ x ] IV Fluids MAR [ x ] O2 supplementation Family PN pg.2 [ x ] Convalescent plasma IV MAR [ x ] Remdesivir IV MAR [ x ] IV Antibiotics MAR [facility] Supervisor Signature: Paras Daigle Phone #: ext [phone] Date 08/23/2020 This is a permanent part of the Medical Record [facility]
--- NOTE | 2020-08-25 15:16 | EKG ---
Test Reason : Blood Pressure : / mmHG Vent. Rate : 090 BPM Atrial Rate : 090 BPM P-R Int : 154 ms QRS Dur : 100 ms QT Int : 396 ms P-R-T Axes : 055 -06 020 degrees QTc Int : 484 ms Normal sinus rhythm Inferior infarct , age undetermined Abnormal ECG Confirmed by ONEYDA GREENE ([id number]), rewrite editor HARSHAL XAVIER ([id number]) on 08/25/2020 3:16:07 PM Referred By: Confirmed By:ONEYDA Nash
== END 2020-08-22 13:56 | disposition home or self-care (01) | DRG 177 ==
LOC: ERS 14:18 → T4-B 15:41
PROVIDERS: ADMIT Student in an Organized Health Care Education/Training Program; ATTEND Student in an Organized Health Care Education/Training Program
PROC: 8E0ZXY6 Isolation (ICD-10-PCS; principal; 2020-08-17)
PROC: 5A1D70Z Performance of Urinary Filtration, Intermittent, Less than 6 Hours Per Day (ICD-10-PCS; 2020-08-17)
PROC: XW13325 Transfusion of Convalescent Plasma (Nonautologous) into Peripheral Vein, Percutaneous Approach, New Technology Group 5 (ICD-10-PCS; 2020-08-18)
DX: U07.1 COVID-19 (principal); J12.82 Pneumonia due to coronavirus disease 2019; J96.01 Acute respiratory failure with hypoxia; N18.6 End stage renal disease; E87.1 Hypo-osmolality and hyponatremia; I12.0 Hypertensive chronic kidney disease with stage 5 chronic kidney disease or end stage renal disease; E87.2 Acidosis; R73.03 Prediabetes; F17.220 Nicotine dependence, chewing tobacco, uncomplicated; R73.9 Hyperglycemia, unspecified; D63.1 Anemia in chronic kidney disease; E88.09 Other disorders of plasma-protein metabolism, not elsewhere classified; E66.01 Morbid (severe) obesity due to excess calories; Z99.2 Dependence on renal dialysis; Z79.899 Other long term (current) drug therapy; Z68.38 Body mass index [BMI] 38.0-38.9, adult
CPT/HCPCS: 0240U; 36415; 36430; 71045; 71275; 80048; 80053; 80202; 82728; 83036; 83615; 83690; 83880; 84145; 84443; 84484; 85025; 85379; 86140; 86850; 86900; 86901; 87340; 90935; 93005; G0257; J0456; J0692; J0696; J1644; J3370; J3490; J7050; J8540; P9017; Q9967